=== PATIENT | male | born 1980 | race Caucasian/White ===

== ENCOUNTER 2016-10-22 21:55 | Emergency (ER) | payer OTHER ==
[2016-10-22 22:05] VITALS: TEMP 98.2
--- NOTE | 2016-10-22 22:19 | EDPHY ---
H & P Time Seen by Provider: 10/22/16 22:10 HPI/ROS: CHIEF COMPLAINT: Acute left wrist pain HISTORY OF PRESENT ILLNESS: 36-year-old male arrives via private vehicle complaining of acute left wrist pain after he attempted to catch a baseball during a baseball game and hyper extended his left wrist against the ground , noticed a deformity which he reduced himself on scene. He is complaining of paresthesia to the left thumb. Denies break in skin. Denies proximal distal pain or injury. PHYSICAL EXAM (Prior to examination, patient consented to physical exam, hands were washed and my usual and customary physical exam procedures followed) 1) GENERAL: Well-developed, well-nourished, alert and oriented. Appears to be in no acute distress. 2) HEAD: Normocephalic 3) HEENT: Pupils equal, round, reactive to light bilaterally. 4) LUNGS: Breathing comfortably. 5) MUSCULOSKELETAL: Soft compartments. Normal coloration. Tender to palpation distal radius. 6) SKIN: intact. No puncture wound. No tenting of tissue. 7) VASCULAR: pulses and cap refill present are brisk 8) NEUROLOGIC: Radial, ulnar, median nerve function intact with no deficits appreciated on exam DIFFERENTIAL DIAGNOSIS: in no particular order including but not limited to fracture, sprain, compartment syndrome Procedure: Splint A sugar-tong Orthoglass splint was applied by ER field evidence technician. After application of the splint I returned and re-examined the patient. The splint was adequately immobilizing the joint and distal to the splint the patient's circulation and sensation were intact. Patient shows no signs of compartment syndrome. Was given orthopedic precautions. Smoking Status: Former smoker Constitutional: Initial Vital Signs Temperature (C) 36.8 C 10/22/16 22:00 Heart Rate 77 10/22/16 22:00 Respiratory Rate 18 10/22/16 22:00 Blood Pressure 143/90 H 10/22/16 22:00 O2 Sat (%) 97 10/22/16 22:00 O2 Delivery Mode Room Air Allergies/Adverse Reactions: No Known Allergies Allergy (Verified 11/10/15 08:18) Home Medications: Medication Instructions Recorded 5-Htp 10/22/16 Flonase Allergy Relief 10/22/16 Hydrochlorothiazide 10/22/16 Hydrocodone/APAP 5/325 [[place] 1 tab PO Q6 PRN #10 tab 10/22/16 5/325 (RX)] MDM/Departure - Depart Disposition: Home, Routine, Self-Care Clinical Impression: Baseball field as place of occurrence of external cause Fracture of left distal radius Qualifiers: Encounter type: initial encounter Fracture type: closed Fracture morphology: Colles' Qualified Code(s): S52.532A - Colles' fracture of left radius, initial encounter for closed fracture Condition: Good Instructions: Wrist Fracture in Adults (ED), Hydrocodone/Acetaminophen (By mouth) Additional Instructions: Return to the ER immediately if you experience discoloration, have worsening pain, numbness, tingling, or any other symptoms that concern you. If you received x-rays in the emergency department today, be advised, that ligamentous , tendon, muscular, and other non-bony injury cannot be fully ruled out. Try to keep your affected extremity elevated above the level of your chest, and keep cold packs on the affected area, for the next 48 hours. Prescriptions: Hydrocodone/APAP 5/325 [[place] 5/325 (RX)] 1 tab PO Q6 PRN #10 tab PRN Reason: Pain, Severe Referrals: Dexter Choudhary MD [Medical Doctor] - 1-2 days without fail
[2016-10-22] MEDS ORDERED: HYDROCOD/APAP 5/325 PREPACK#6 BTL TAKEHOME ONE (22:25)
[2016-10-22] MEDS ORDERED: IBUPROFEN 600 MG TAB PO ONE ×2 (22:55→22:57)
[2016-10-22 23:13] VITALS: BP 150/100; PULSE 60; RESP 14; O2SAT 96
== END 2016-10-22 23:25 | disposition home or self-care (01) ==
DX: S52.532A Colles' fracture of left radius, initial encounter for closed fracture (principal); X58.XXXA Exposure to other specified factors, initial encounter; Y92.320 Baseball field as the place of occurrence of the external cause; Y99.8 Other external cause status; Y93.64 Activity, baseball; Z87.891 Personal history of nicotine dependence
CPT/HCPCS: A4565